=== PATIENT | female | born 1950 | race Caucasian/White ===

== ENCOUNTER 2016-08-23 22:43 | Inpatient (IN) | payer OTHER ==
[~2016-08-23] VITALS: Ht 167.6 cm; Wt 107.0 kg
--- NOTE | ~2016-08-23 | HC ---
[facility] [place] [address] CONSULTATION Name: CYNTHIA AGUILAR Room #: 536-P [facility] IN M.R.#: [id number] Admission: 08/24/16 Attend Phys: Venus Bradford Discharge: Date of : 54 Report #: [id number] THIS REPORT FOR: //name// CC: Raf Bradford DATE OF SERVICE: 08/24/2016 DATE OF SERVICE: 08/24/2016 CHIEF COMPLAINT: Pathologic fracture, left proximal femur. 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 She has recently completed a chemotherapy cycle ____ about one week ago. She fell yesterday, landing awkwardly and injuring the left hip. She was brought to the Emergency Department where x-rays confirmed a displaced, unstable subtrochanteric left femur fracture. There is not clear evidence of significant lytic lesion at this level, although I suspect there must be metastatic involvement in this region. The femoral head and acetabulum appeared to be well aligned and without significant degenerative change. At the time of this dictation, we do not yet have full x-rays of the left femur to assess for other areas of possible metastatic disease and bone weakness. At the time of my evaluation, she is alert and oriented and accompanied by her . She is quite anxious and quite uncomfortable. She has been on chronic narcotic medications for some time and now her pain at the left hip is rather severe. She seems to have good movement of both upper extremities and the right lower extremity and denies significant new discomfort in those areas, although she does have rather significant chronic pain. She is not complaining of any discomfort involving the neck, mid back or low back. The pelvis seems to be stable and well aligned. The right lower extremity reveals good movement at the hip, knee and ankle without significant joint discomfort. The left lower extremity appears to be slightly short and rotated and there is rather marked discomfort with any attempted movement of the left hip consistent with an unstable proximal femur fracture. Distal neurologic and vascular status appeared to be intact. X-rays of the left hip reveal a subtrochanteric fracture with displacement and mild comminution. The cortical bone seems to be otherwise fairly intact without evidence of significant bony erosion or metastatic disease. As noted above, new x-rays of the entire femur are pending at the time of this dictation. IMPRESSION: Pathologic fracture, left proximal femur. I have discussed with the patient and her , the nature of this problem [place] [address] CONSULTATION Name: CYNTHIA AGUILAR Room #: 536-P [facility] IN M.R.#: [id number] Admission: 08/24/16 Attend Phys: Venus Bradford Discharge: Date of : 54 Report #: [id number] options. She is markedly uncomfortable and hopes for anything we might do to help with her severe pain. I think intramedullary ivonne fixation of this subtrochanteric femur fracture is probably the best approach to try to manage her symptoms. She is certainly at risk for other areas of fracture. I am in the process of getting full femur x-rays to decide whether a short ivonne or a long ivonne may be most appropriate in this patient. Pending those films and medical clearance, and OR availability, we may be able to proceed with her surgical repair today, which is certainly the hope of the patient and her . They understand the potential risks and benefits as well and appreciate that she certainly at significant risk for catastrophic complications given her widely metastatic cancer at this point. <ELECTRONICALLY SIGNED> By: Raf Aj MD 08/26/16 1054 0916 1222 Raf Aj MD /nt
--- NOTE | ~2016-08-23 | HC ---
[facility] [place] [address] CONSULTATION Name: CYNTHIA AGUILAR Room #: 536-P [facility] IN M.R.#: [id number] Admission: 08/24/16 Attend Phys: Venus Bradford Discharge: Date of : 54 Report #: [id number] THIS REPORT FOR: //name// CC: Raf Bradford HISTORY OF PRESENT ILLNESS: This is a 65-year-old female having an acute delirium. She has had some medications that have deviated from her routine medication list and the family is unhappy about this, so we worked through the list about what the patient needs to be on from home and there are some concerning things such as that she does takes alprazolam 1 mg doses 4-5 times a day, but absolutely 4 times a day, so we abruptly would stop it. She will have withdrawal. Effexor is actually 300 mg total daily, so if we abruptly stop that she could have withdrawal and confusion. Nonetheless, even at her baseline, she could have confusion given everything she is going through. She is a complex patient and it is hard to manage many of these medications and some of the things on her list by the way, she is on oxycodone 20 mg twice daily. Her list includes Meloxicam, atorvastatin, losartan, hydrochlorothiazide, pantoprazole, Bystolic, melatonin 20 mg at bedtime, ____, Claritin, senna, B12. PAST PSYCHIATRIC HISTORY: She has been treated by ____, psychiatrist in [facility] for the last 7 years and had fairly good control with anxiety and depression largely and they feel that has been fairly stable. ALLERGIES: No known drug allergies. MEDICATIONS: Reviewed, noted on chart and also reconciled with family and nursing at length. PHYSICAL EXAMINATION: VITAL SIGNS: Reviewed, pulse 79, respirations 20, BP 150/72. LABORATORY DATA: White count 9.3, hemoglobin 9.0, neutrophils 93%. Sodium 131, BUN 20, calcium 6, phosphorus 2, ALT 12. Hemoglobin 9.7, creatinine 0.9, glucose 142. IMPRESSION: The patient has a nonsmall cell lung cancer with bone mets to the right hip. She has a pathological fracture on her left hip. FAMILY MEDICAL HISTORY: None. SOCIAL HISTORY: The patient has good support from her family. I spoke with numerous family members who are in the room trying to help her with the situation. Apparently also from a psychiatric standpoint, has a history of depression, [facility] [address] [place] [address] CONSULTATION Name: CYNTHIA AGUILAR Room #: 536-P [facility] IN [facility].#: [id number] Admission: 08/24/16 Attend Phys: Venus Bradford Discharge: Date of : 54 Report #: [id number] anxiety, PTSD; from a medical standpoint also has a history of numerous surgeries including carotid endarterectomies, meniscus repair, hysterectomy, total knee replacement, left side, GERD, colonoscopy, hypercholesterolemia. SOCIAL HISTORY: She has [id number]-cayub of smoking. ASSESSMENT: The patient is alert, but disoriented. She is hallucinating. She is talking about babies being born. She is not able to orientate correctly. She is restless. She is complaining of anxiety, but she did calm down after she was given some Xanax from staff and her arm tenderness improved and she seemed generally calmer by the time I had left. She is able find no cogent history. Family provided all the history and also printed out her medications. Her affect is restless and tense waxing and waning. Limited insight and judgment. She lacks insight and judgment. Actively hallucinating visual hallucinations. She has significant anxiety as well, panic like features. ASSETS AND LIABILITIES: Assets include family involvement and hospitalization. Liabilities include severity of illness. IMPRESSION: AXIS I: 1. Major depressive, recurrent, severe. 2. Post-traumatic stress disorder. 3. Agitation. 4. Delirium. AXIS II: Deferred. AXIS III: As above. AXIS IV: Severe. AXIS V: Global assessment function currently 30%. PLAN: The patient is a complex patient. It is tough to make decisions regarding her medications, but I think we do more harm right now stopping the Xanax abruptly than keeping it going and that it does have a risk of causing more confusion and making the delirium last longer, but I think the risk from withdrawal would show a greater problem sensing with the opiates, so it is good that we get her back on her routine opiate amounts as that could be part of why she is so significantly confused, especially with a visual hallucination component, so we have corrected the medications and continue to do so. We will get her back on the melatonin. I think it is fairly benign even at 20 mg, that should actually help her sleep and hopefully improve her mental site status as well. The Risperdal, she will be shifted back to her usual dose of 0.5 mg at bedtime. She will use 0.25 also as needed for agitation and will use Xanax for [facility] [address] [place] [address] CONSULTATION Name: CYNTHIA AGUILAR Room #: 536-P [facility] IN M.R.#: [id number] Admission: 08/24/16 Attend Phys: Venus Bradford Discharge: Date of : 54 Report #: [id number] anxiety. Other things I would consider using such you have done with Haldol and other types of anxiolytics, but I think given how confused she is now, simplification is the idea, so we need to avoid adding different benzodiazepines, avoid different antipsychotics, stick with these at least for a day or two and then hopefully by Saturday, we can decide whether she needs a different type of approach and hopefully also we will be seeing a gradual improvement of her mental status. We will follow the patient. Thank you for your consultation of this complex patient. If you have any questions, give me a call. By: [phone] Joao Bo MD /nt
--- NOTE | ~2016-08-23 | O ---
[facility] [place] [address] OPERATIVE REPORT Name: CYNTHIA AGUILAR Room #: 536-P [facility] IN M.R.#: [id number] Admission: 08/24/16 Attend Phys: Venus Bradford Discharge: Date of : 54 Report #: [id number] THIS REPORT FOR: //name// CC: Raf Bradford DATE OF SERVICE: 08/24/2016 PREOPERATIVE DIAGNOSIS: Left proximal femur subtrochanteric fracture with pathologic fracture due to metastatic cancer. POSTOPERATIVE DIAGNOSIS: Left proximal femur subtrochanteric fracture with pathologic fracture due to metastatic cancer. PROCEDURE: Reduction and fixation of left pathologic proximal femur fracture using long TFN nail fixation. SURGEON: Raf Aj M.D. INDICATIONS: This 65-year-old female with metastatic small cell carcinoma presents after a fall with a left proximal femur fracture in the subtrochanteric region. We discussed treatment options and elected to go ahead with surgical fixation using a long TFN nail device. DESCRIPTION OF PROCEDURE: The patient was taken to the operating room where she is placed under general anesthesia. Prophylactic intravenous antibiotics were administered. She was positioned on the fracture table with gentle longitudinal traction to allow reduction and visualization of the left proximal femur fracture. C-arm was utilized. The lateral aspect of the left hip and thigh were meticulously prepped and draped. A skin incision was made several centimeters above the greater trochanter, access to the trochanter was somewhat difficult as she is large with a rather abundant adipose tissues. A guidewire was placed through the tip of the trochanter extending across the fracture and down the intramedullary canal. The canal was then reamed with reamers gradually advancing to a 13-mm reamer diameter. A 10-mm diameter Synthes TFN nail was selected, a 34-cm length nail was selected, which brought the tip down to the metaphyseal region several centimeters above her total knee on that side. The TFN nail was advanced appropriately and then rotated under C-arm visualization such that the lateral guidewire extended nicely into the mid portion of the femoral head and neck. A 105-mm length helical blade nail was then inserted across the nail into the femoral neck and head region. It was advanced to a point about 10-12 mm below the subchondral bone at the femoral head, it seemed to have good purchase in this region. The proximal locking nut was tightened down. This resulted in satisfactory alignment and stability of the proximal fracture. Visualization with C-arm was then established distally. I elected to [address] [address] OPERATIVE REPORT Name: CYNTHIA AGUILAR Wendy Room #: 536-P [facility] IN M.R.#: [id number] Admission: 08/24/16 Attend Phys: Venus Bradford Discharge: Date of : 54 Report #: [id number] just one screw in the dynamic slot such that there would be room for fracture compression with weightbearing. A single transverse locking screw was placed, it seated nicely and appeared to be secure. The wounds were copiously irrigated. Good hemostasis was established. The wound was then closed with 0 Monocryl and skin roddy. A sterile dressing was applied. The patient was awakened and returned to the recovery room in satisfactory condition. <ELECTRONICALLY SIGNED> By: Raf Aj MD 08/26/16 1054 1128 1412 Raf Aj MD /nt
[2016-08-23 22:43] VITALS: BP 153/52
[~2016-08-23 22:43] MED LIST: ALPRAZOLAM; ALPRAZOLAM ER1 MG PO; ASPIR 8181 M1 PO; CELEBREX 200 M200 MG; COLACE100 MG PO; COUMADIN 2 MG TA2 M1; COUMADIN 5 MG TA5 M1; COZAAR100 MG PO; DICLOFENAC SOD50 M1 PO; DIOVAN; EFFEXOR; EFFEXOR XR150 MG PO; FIBER500 MG PO; FLEXERIL PO; HYDROCHLOROTHIA25 M2 PO; HYDROCODON-ACE1 EAC7 PO; HYDROCODONE-AP1 EAC6 PO; HYDROCODONE-APA1 TA1 PO; LIPITOR; LIPITOR20 MG PO; LYRICA 75 MG CA75 MG PO; MEDROLDOSEPACK PO; MOBIC15 MG PO; NAPROSYN500 MG PO; NEURONTIN 300300 M1; NEURONTIN600 MG PO; NORCO 10-325 T1 EACH PO; NORCO 5-325 TA1 EACH PO; OXYCODONE-ACET1 EAC2; PERCOCET 5-3251 EACH PO; PREDNISONE 20 M20 MG PO; PROTONIX PO; PROTONIX40 M2 PO; PROTONIX40 M4 PO; RISPERDAL4 MG PO; ROBITUSSIN DM118 ML PO; TOPAMAX50 MG PO; VITAMIN B-121000 MCG PO; VITAMIN D 5050000 I1; VITAMIN D1000 UNI1 PO; XARELTO10 MG PO
[2016-08-23] MEDS ORDERED: BYSTOLIC 5 MG5 M1 PO (23:10)
[2016-08-23] MEDS ORDERED: OXYCONTIN20 M1 PO (23:10)
[2016-08-23] MEDS ORDERED: MELATONIN10 M5 PO (23:12)
[2016-08-23] MEDS ORDERED: CURCUMIN1 GM (23:12)
[2016-08-23] MEDS ORDERED: CLARITIN10 MG PO (23:12)
[2016-08-23] MEDS ORDERED: SENNA8.6 MG PO (23:13)
[2016-08-23] MEDS ORDERED: SYMBICORT160 MCG/4. INH (23:14)
[2016-08-23] MEDS ORDERED: FOLIC ACID1 MG (23:15)
[2016-08-23] MEDS ORDERED: ONDANSETRON HCL4 M2 (23:16)
[2016-08-23] MEDS ORDERED: COMPAZINE10 MG (23:16)
[2016-08-23] MEDS ORDERED: DEXAMETHASONE 44 M1 (23:16)
[2016-08-23] MEDS ORDERED: BACTRIM 400-801 EACH (23:18)
[2016-08-23 23:24] LABS: HEMOGLOBIN 8.1 gm/dL (12.0-15.0); MCH 33.1 pg (26.0-34.0); MCHC 35.2 g/dL (28.0-37.0); PLATELET COUNT 245 thou/uL (150-400); RBC 2.44 mil/uL (4.20-5.00); RDW 14.2 % (10.5-14.5); WBC 3.5 thou/uL (4.0-11.0)
[2016-08-23 23:28] LABS: CALCIUM 6.9 mg/dL (8.5-10.1); CREATININE 0.9 mg/dL (0.6-1.0); POTASSIUM 4.2 mmol/L (3.5-5.1)
[2016-08-23 23:32] LABS: TOTAL BILIRUBIN 0.3 mg/dL (<0.1-1.0)
[2016-08-23 23:37] LABS: MANUAL DIFF YES
[2016-08-23 23:59] LABS: ABSOLUTE NEUTROPHILS 3.4 thou/uL (1.4-8.2); TOTAL CELL COUNT 100
[2016-08-24] VITALS (11 sets, daily range): BP systolic 118–169; BP diastolic 65–80
[2016-08-24] MEDS ORDERED: MOBIC15 MG PO (02:29)
[2016-08-24] MEDS ORDERED: VENLAFAXINE HC150 MG PO (02:31)
[2016-08-24] MEDS ORDERED: COMPAZINE10 MG PO (02:35)
[2016-08-24 16:34] LABS: HEMATOCRIT 27.6 % (37.0-47.0); HEMOGLOBIN 9.7 gm/dL (12.0-15.0)
[2016-08-24 16:42] LABS: CALCIUM 6.9 mg/dL (8.5-10.1); CREATININE 0.9 mg/dL (0.6-1.0); POTASSIUM 4.2 mmol/L (3.5-5.1)
[2016-08-25 05:37] LABS: HEMATOCRIT 25.9 % (37.0-47.0); MCH 32.7 pg (26.0-34.0); MCHC 34.6 g/dL (28.0-37.0); MCV 94.4 fL (80.0-100.0); PLATELET COUNT 216 thou/uL (150-400); RBC 2.74 mil/uL (4.20-5.00); RDW 14.5 % (10.5-14.5); WBC 3.4 thou/uL (4.0-11.0)
[2016-08-25 05:38] LABS: MANUAL DIFF YES
[2016-08-25 05:49] LABS: ALBUMIN 2.6 g/dL (3.4-5.0); CREATININE 0.8 mg/dL (0.6-1.0); MAGNESIUM 2.3 mg/dL (1.8-2.4); POTASSIUM 4.1 mmol/L (3.5-5.1); TOTAL BILIRUBIN 0.3 mg/dL (<0.1-1.0); TOTAL PROTEIN 6.2 g/dL (6.4-8.2)
[2016-08-25 08:07] VITALS: BP 150/72
[2016-08-25 10:53] LABS: ABSOLUTE NEUTROPHILS 3.2 thou/uL (1.4-8.2); NUCLEATED RBCS 1 /100WBC; TOTAL CELL COUNT 100
[2016-08-25 10:54] LABS: ANISOCYTOSIS SLIGHT
[2016-08-25 16:01] VITALS: BP 148/57
[2016-08-25 19:15] VITALS: BP 152/81
[2016-08-26 05:45] VITALS: BP 121/59
[2016-08-26 06:03] LABS: HEMATOCRIT 24.1 % (37.0-47.0); HEMOGLOBIN 8.4 gm/dL (12.0-15.0); MCH 32.6 pg (26.0-34.0); MCV 93.2 fL (80.0-100.0); RBC 2.58 mil/uL (4.20-5.00); RDW 14.5 % (10.5-14.5); WBC 3.1 thou/uL (4.0-11.0)
[2016-08-26 06:11] LABS: CALCIUM 6.9 mg/dL (8.5-10.1); CREATININE 0.8 mg/dL (0.6-1.0); POTASSIUM 3.4 mmol/L (3.5-5.1)
[2016-08-26 16:14] VITALS: BP 135/54
[2016-08-26 20:00] VITALS: BP 119/64
[2016-08-27 08:01] VITALS: BP 132/58
[2016-08-27 11:12] LABS: HEMATOCRIT 21.7 % (37.0-47.0); HEMOGLOBIN 7.8 gm/dL (12.0-15.0); MCH 33.2 pg (26.0-34.0); MCHC 36.1 g/dL (28.0-37.0); RBC 2.36 mil/uL (4.20-5.00); RDW 14.4 % (10.5-14.5)
[2016-08-27 11:18] LABS: CALCIUM 6.5 mg/dL (8.5-10.1); CREATININE 0.7 mg/dL (0.6-1.0); MANUAL DIFF YES; POTASSIUM 3.4 mmol/L (3.5-5.1); WBC 1.8 thou/uL (4.0-11.0)
[2016-08-27 12:41] LABS: ABSOLUTE NEUTROPHILS 1.3 thou/uL (1.4-8.2); ANISOCYTOSIS 1+; ATYPICAL LYMPHS 1 %; MICROCYTES 2+; TOTAL CELL COUNT 100
[2016-08-27 12:42] LABS: PLATELET COUNT 71 thou/uL (150-400); PLATELET ESTIMATE DECREASED
[2016-08-27 17:38] VITALS: BP 92/43
[2016-08-27 19:49] VITALS: BP 135/55
[2016-08-28 03:26] VITALS: BP 128/63
[2016-08-28 04:40] LABS: CALCIUM 7.2 mg/dL (8.5-10.1); CREATININE 0.7 mg/dL (0.6-1.0); POTASSIUM 3.6 mmol/L (3.5-5.1)
[2016-08-28 04:48] LABS: HEMOGLOBIN 7.8 gm/dL (12.0-15.0); MCH 32.7 pg (26.0-34.0); RBC 2.39 mil/uL (4.20-5.00)
[2016-08-28 04:50] LABS: HEMATOCRIT 22.3 % (37.0-47.0); MCHC 35.1 g/dL (28.0-37.0); MCV 93.2 fL (80.0-100.0); PLATELET COUNT 53 thou/uL (150-400); RDW 14.2 % (10.5-14.5)
[2016-08-28 04:57] LABS: MANUAL DIFF YES
[2016-08-28 04:58] LABS: WBC 1.9 thou/uL (4.0-11.0)
[2016-08-28 07:15] VITALS: BP 152/61
[2016-08-28 08:22] LABS: ABSOLUTE NEUTROPHILS 1.1 thou/uL (1.4-8.2); ANISOCYTOSIS SLIGHT; TOTAL CELL COUNT 100
[2016-08-28 15:00] VITALS: BP 134/61
[2016-08-29 04:30] VITALS: BP 114/56
[2016-08-29 07:45] VITALS: BP 109/52
[2016-08-29 07:58] LABS: MCV 92.9 fL (80.0-100.0)
[2016-08-29 08:00] LABS: MCH 33.1 pg (26.0-34.0); MCHC 35.6 g/dL (28.0-37.0); RDW 14.6 % (10.5-14.5)
[2016-08-29 08:07] LABS: ALBUMIN 2.2 g/dL (3.4-5.0); CALCIUM 6.9 mg/dL (8.5-10.1); CREATININE 0.7 mg/dL (0.6-1.0); POTASSIUM 3.5 mmol/L (3.5-5.1); TOTAL BILIRUBIN 0.4 mg/dL (<0.1-1.0); TOTAL PROTEIN 5.6 g/dL (6.4-8.2)
[2016-08-29 08:09] LABS: MANUAL DIFF YES
[2016-08-29 08:12] LABS: HEMATOCRIT 19.5 % (37.0-47.0); HEMOGLOBIN 6.9 gm/dL (12.0-15.0); WBC 1.6 thou/uL (4.0-11.0)
[2016-08-29 09:12] LABS: ABSOLUTE NEUTROPHILS 0.8 thou/uL (1.4-8.2); ATYPICAL LYMPHS 2 %; TOTAL CELL COUNT 50
[2016-08-29 09:13] LABS: ANISOCYTOSIS 1+
[2016-08-29 15:04] VITALS: BP 109/61; BP 96/54
[2016-08-29 21:04] VITALS: BP 121/60
[2016-08-30 07:30] VITALS: BP 86/50
[2016-08-30 08:00] VITALS: BP 124/55
[2016-08-30 08:03] LABS: HEMATOCRIT 20.9 % (37.0-47.0); HEMOGLOBIN 7.4 gm/dL (12.0-15.0); MCH 32.6 pg (26.0-34.0); MCHC 35.4 g/dL (28.0-37.0); MCV 92.1 fL (80.0-100.0); RBC 2.27 mil/uL (4.20-5.00); RDW 14.4 % (10.5-14.5)
[2016-08-30 08:10] LABS: MANUAL DIFF YES
[2016-08-30 08:11] LABS: PLATELET COUNT 24 thou/uL (150-400); WBC 1.3 thou/uL (4.0-11.0)
[2016-08-30 09:13] LABS: ABSOLUTE NEUTROPHILS 0.5 thou/uL (1.4-8.2); LARGE PLATELETS FEW; PLATELET ESTIMATE MARKEDLY DECREASED; TOTAL CELL COUNT 100
[2016-08-30 19:15] VITALS: BP 104/67
[2016-08-31 04:55] VITALS: BP 112/68
[2016-08-31 07:38] LABS: HEMATOCRIT 21.4 % (37.0-47.0); HEMOGLOBIN 7.5 gm/dL (12.0-15.0); MCH 32.4 pg (26.0-34.0); RDW 14.7 % (10.5-14.5)
[2016-08-31 07:40] LABS: MCV 92.6 fL (80.0-100.0); RBC 2.31 mil/uL (4.20-5.00)
[2016-08-31 07:44] LABS: MANUAL DIFF YES
[2016-08-31 07:46] LABS: PLATELET COUNT 28 thou/uL (150-400); WBC 1.2 thou/uL (4.0-11.0)
[2016-08-31 08:55] LABS: ABSOLUTE NEUTROPHILS 0.4 thou/uL (1.4-8.2); ATYPICAL LYMPHS 6 %; METAMYELOCYTES 2 %; NUCLEATED RBCS 1 /100WBC; TOTAL CELL COUNT 50
[2016-08-31 08:57] LABS: ANISOCYTOSIS 1+
[2016-08-31 09:17] VITALS: BP 100/57
[2016-08-31 16:00] VITALS: BP 95/53
[2016-08-31 19:39] VITALS: BP 114/57
[2016-09-01 03:44] VITALS: BP 82/50
[2016-09-01 04:28] LABS: HEMOGLOBIN 7.5 gm/dL (12.0-15.0)
[2016-09-01 04:31] LABS: HEMATOCRIT 21.5 % (37.0-47.0); MCH 32.4 pg (26.0-34.0); MCHC 35.1 g/dL (28.0-37.0); MCV 92.2 fL (80.0-100.0); RBC 2.33 mil/uL (4.20-5.00); RDW 14.8 % (10.5-14.5)
[2016-09-01 05:05] LABS: WBC 1.4 thou/uL (4.0-11.0)
[2016-09-01 09:09] VITALS: BP 90/68
[2016-09-01 11:43] VITALS: BP 106/42
[2016-09-01] MEDS ORDERED: OXYCODONE HCL 55 MG PO (18:07)
[2016-09-01] MEDS ORDERED: XANAX1 MG PO (18:07)
[2016-09-01] MEDS ORDERED: OXYCONTIN20 M1 PO (18:07)
== END 2016-09-01 19:24 | DRG 480 ==
LOC: ER 22:43 → EROBS 08-24 00:22 → 5S 08-24 00:22 → 4N 08-30 16:55
PROVIDERS: Family Medicine; Hospitalist; Internal Medicine; Internal Medicine Hematology & Oncology; Nurse Practitioner; Physician Assistant
PROC: 0QS704Z Reposition Left Upper Femur with Internal Fixation Device, Open Approach (ICD-10-PCS; principal; 2016-08-24)
DX: M84.452 Pathological fracture, left femur (principal); E43 Unspecified severe protein-calorie malnutrition; E87.1 Hypo-osmolality and hyponatremia; C34.90 Malignant neoplasm of unspecified part of unspecified bronchus or lung; C79.51 Secondary malignant neoplasm of bone; D61.818 Other pancytopenia; Z96.652 Presence of left artificial knee joint; F32.9 Major depressive disorder, single episode, unspecified; F43.10 Post-traumatic stress disorder, unspecified; F41.9 Anxiety disorder, unspecified; K21.9 Gastro-esophageal reflux disease without esophagitis; E78.5 Hyperlipidemia, unspecified; Z96.651 Presence of right artificial knee joint; G89.29 Other chronic pain; R45.1 Restlessness and agitation; I25.10 Atherosclerotic heart disease of native coronary artery without angina pectoris; I10 Essential (primary) hypertension; E87.6 Hypokalemia; K08.409 Partial loss of teeth, unspecified cause, unspecified class; R09.02 Hypoxemia; Z90.710 Acquired absence of both cervix and uterus; Z87.891 Personal history of nicotine dependence; Z79.899 Other long term (current) drug therapy; Z68.38 Body mass index [BMI] 38.0-38.9, adult
CPT/HCPCS: 10086; 10790; 50010; 50101; 50133; 50202; 50386; 50635; 51412; 51538; 51817; 52145; 52304; 56525; 57092; 62110; 62900; 70005

== ENCOUNTER 2016-11-19 13:18 | Observation (INO) | payer OTHER ==
[~2016-11-19] VITALS: Ht 167.6 cm; Wt 104.3 kg
[~2016-11-19 13:18] MED LIST changes: +BACTRIM 400-801 EACH; +BYSTOLIC 5 MG5 M1 PO; +CLARITIN10 MG PO; +COMPAZINE10 MG; +COMPAZINE10 MG PO; +CURCUMIN1 GM; +DEXAMETHASONE 44 M1; +FOLIC ACID1 MG; +MELATONIN10 M5 PO; +ONDANSETRON HCL4 M2; +OXYCODONE HCL 55 MG PO; +OXYCONTIN20 M1 PO; +SENNA8.6 MG PO; +SYMBICORT160 MCG/4. INH; +VENLAFAXINE HC150 MG PO; +XANAX1 MG PO
[2016-11-19 13:57] LABS: ABSOLUTE NEUTROPHILS 3.4 thou/uL (1.4-8.2); HEMATOCRIT 28.5 % (37.0-47.0); HEMOGLOBIN 9.7 gm/dL (12.0-15.0); LYMPHOCYTES 12.6 % (24.0-44.0); MCV 94.6 fL (80.0-100.0); RBC 3.01 mil/uL (4.20-5.00); WBC 4.3 thou/uL (4.0-11.0)
[2016-11-19 13:59] LABS: BASOPHILS 0.3 % (0.0-2.0); MCH 32.1 pg (26.0-34.0); MONOCYTES 8.4 % (1.0-8.0); POLYS 78.7 % (36.0-66.0)
[2016-11-19 14:00] LABS: MANUAL DIFF NO
[2016-11-19 14:14] LABS: ALBUMIN 2.6 g/dL (3.4-5.0); CREATININE 1.3 mg/dL (0.6-1.0); DIRECT BILIRUBIN 0.2 mg/dL (<0.1-0.3); TOTAL BILIRUBIN 0.4 mg/dL (<0.1-1.0)
[2016-11-19 14:19] LABS: POTASSIUM 2.6 mmol/L (3.5-5.1)
[2016-11-19 14:40] LABS: PLATELET COUNT 22 thou/uL (150-400)
[2016-11-19] MEDS ORDERED: ARIPIPRAZOLE5 MG PO (17:22)
[2016-11-19 18:03] VITALS: BP 168/87
[2016-11-19 20:00] VITALS: BP 158/89
[2016-11-19 20:23] LABS: CALCIUM 5.7 mg/dL (8.5-10.1); MAGNESIUM 0.6 mg/dL (1.8-2.4); POTASSIUM 2.5 mmol/L (3.5-5.1)
[2016-11-20] VITALS: BP 146/77
[2016-11-20 06:39] LABS: HEMATOCRIT 24.8 % (37.0-47.0); HEMOGLOBIN 8.5 gm/dL (12.0-15.0); WBC 3.2 thou/uL (4.0-11.0)
[2016-11-20 06:41] LABS: MCH 32.7 pg (26.0-34.0); MCHC 34.1 g/dL (28.0-37.0); MCV 95.8 fL (80.0-100.0); RBC 2.59 mil/uL (4.20-5.00); RDW 22.3 % (10.5-14.5)
[2016-11-20 07:04] LABS: ALBUMIN 2.4 g/dL (3.4-5.0); TOTAL BILIRUBIN 0.3 mg/dL (<0.1-1.0); TOTAL PROTEIN 6.5 g/dL (6.4-8.2)
[2016-11-20 07:15] LABS: CALCIUM 5.6 mg/dL (8.5-10.1); POTASSIUM 2.4 mmol/L (3.5-5.1)
[2016-11-20 08:30] VITALS: BP 98/53
[2016-11-20] MEDS ORDERED: POTASSIUM20 PO (10:37)
[2016-11-20 10:46] VITALS: BP 98/53
[2016-11-20] MEDS ORDERED: MAGOX 400400 MG PO (11:18)
== END 2016-11-20 12:14 | disposition home or self-care (01) ==
LOC: ER 13:18 → EROBS 15:20 → 3N 15:20
PROVIDERS: Nurse Practitioner
DX: R11.2 Nausea with vomiting, unspecified (principal); C34.90 Malignant neoplasm of unspecified part of unspecified bronchus or lung; D61.818 Other pancytopenia; E87.6 Hypokalemia; C79.89 Secondary malignant neoplasm of other specified sites; E78.00 Pure hypercholesterolemia, unspecified; F32.9 Major depressive disorder, single episode, unspecified; F41.9 Anxiety disorder, unspecified; K21.9 Gastro-esophageal reflux disease without esophagitis; F43.10 Post-traumatic stress disorder, unspecified; I10 Essential (primary) hypertension; E83.42 Hypomagnesemia; Z88.8 Allergy status to other drugs, medicaments and biological substances; Z96.653 Presence of artificial knee joint, bilateral; Z87.891 Personal history of nicotine dependence; Z90.710 Acquired absence of both cervix and uterus; Z79.899 Other long term (current) drug therapy
CPT/HCPCS: 10096; 23020; 23021; 23024; 23025; 23031

== ENCOUNTER 2016-11-30 14:29 | Inpatient (IN) | payer OTHER ==
[~2016-11-30] VITALS: Ht 167.6 cm; Wt 97.5 kg
--- NOTE | ~2016-11-30 | HC ---
[facility] [place] [address] CONSULTATION Name: CYNTHIA AGUILAR Room #: 303-P [facility] IN ..#: [id number] Admission: 11/30/16 Attend Phys: Em[facility]ckerman MD[facility] Discharge: Date of : 54 Report #: [id number] THIS REPORT FOR: //name// CC: Emre Ackerman HISTORY OF PRESENT ILLNESS: The patient is a pleasant 65-year-old female I have been asked to see for further evaluation of her nausea and vomiting. She had a CT scan today, which revealed partial small-bowel obstruction, detailed below. She began having nausea and vomiting approximately 48 hours prior to presentation. She has had some epigastric and periumbilical abdominal pain as well. She was diagnosed with lung cancer in July 2016 and sought a second opinion at [facility]. There was suspicion per her history of a lesion in the right hip region and she received radiation for this. She has also had chemo. She has had a colonoscopy done in the last 4-5 months, which was normal. She has had intra-abdominal surgery to include only hysterectomy. PAST MEDICAL HISTORY: Other medical history notable for bilateral knee replacements, knee arthroscopy, hysterectomy, endarterectomy, PTSD, depression, anxiety, hypertension, COPD and reflux. FAMILY HISTORY: Negative for inflammatory bowel disease or colon cancer. SOCIAL HISTORY: Denies alcohol use. Smoked until about a year ago. MEDICATIONS: On presentation, magnesium oxide, hydrochlorothiazide, budesonide, Protonix, albuterol, Effexor, Zofran, Xanax, Abilify, hydrocodone, Cozaar, potassium. REVIEW OF SYSTEMS: Negative for weight loss, weakness or fatigue. She denies head, eyes, ears, nose or throat complaints. She denies chest pain, chest palpitation, chest pressure, cough, shortness of breath, wheezing, genitourinary, musculoskeletal or neuropsychiatric complaints otherwise. PHYSICAL EXAMINATION: GENERAL: The patient is afebrile. VITAL SIGNS: Stable. HEENT: Nonicteric. NECK: No JVD, thyromegaly or bruits. CARDIOVASCULAR: Regular. LUNGS: Clear anteriorly. ABDOMEN: Soft, nondistended, mildly tender diffusely. No rebound or guarding. No stigmata of chronic liver disease. No abnormal masses or bruits. EXTREMITIES: Not examined. NEUROLOGIC: Not performed. RECTAL: Deferred. [facility] [address] [place] [address] CONSULTATION Name: CYNTHIA AGUILAR Room #: 303-P [facility] IN M.R.#: [id number] Admission: 11/30/16 Attend Phys: Emre Ackerman MD, FAAF Discharge: Date of : 54 Report #: [id number] LABORATORY DATA: Pertinent labs include white count 10.8, hemoglobin 11.6, platelet count 91. Serum chemistry notable for potassium 2.6, calcium 5.9, magnesium 0.9, chloride 94, creatinine 1.1. IMAGING DATA: CT of the abdomen reveals evidence of a partial small-bowel obstruction with transition zone in the right lower quadrant. No obvious mass or peritoneal metastasis. ASSESSMENT AND PLAN: In summary, the patient most likely has a partial small-bowel obstruction from adhesions. Of course, we would want to exclude metastatic disease to the small bowel, which would be unlikely with lung cancer. I would proceed with conservative management with nasogastric suction and bowel rest, avoiding excessive narcotics and serial exam as well as x-ray. Thanks for allowing me to participate in the care of this nice woman. <ELECTRONICALLY SIGNED> By: Justin Landin MD 12/02/16 1241 1313 1952 Justin Landin MD /nt
--- NOTE | ~2016-11-30 | EKG ---
[place] [address] [facility] [place] [address] ELECTROCARDIOGRAM REPORT Name: CYNTHIA AGUILAR Room #: 303-P ADM IN M.R.#: [id number] Admission: 11/30/16 Attend Phys: Emre Ackerman MD, FAAF Discharge: Date of : 54 Report #: [id number] THIS REPORT FOR: //name// [facility] ED Test Date: 2016-11-30 Test Time: 15:03:49 Pat Name: CYNTHIA AGUILAR Department: Room: 303 Gender: F [employer]ist: [id number] : 1950 Requested By: Turner Eng Order Number: [id number] MD: Adan Mortensen Measurements Intervals Flanagan Rate: 103 P: 57 WI: 129 QRS: 63 QRSD: 97 T: 214 QT: 363 QTc: 475 Interpretive Statements Sinus tachycardia Nonspecific ST and T wave abnormality Artifact in lead(s) I,II,aVR,aVL,aVF Compared to ECG 07/12/2014 08:58:05 ST and T wave abnormality is more pronounced Electronically Signed On 12-03-2016 8:30:33 CDT by Adan Mortensen [email or web address] <ELECTRONICALLY SIGNED> By: Adan Mortensen MD, [facility] 12/03/16 0830 1503 1503 Adan Mortensen MD, [facility] /EPI
--- NOTE | ~2016-11-30 | HC ---
[facility] [place] [address] CONSULTATION Name: CYNTHIA AGUILAR Room #: 303-P [facility] IN ..#: [id number] Admission: 11/30/16 Attend Phys: Emre Ackerman MD, FAAF Discharge: Date of : 54 Report #: [id number] THIS REPORT FOR: //name// CC: Emre Ackerman DATE OF SERVICE: 12/01/2016 I have been asked to evaluate this 65-year-old lady who has presented to the Emergency Department with chief complaint of nausea and vomiting. The patient is undergoing chemotherapy for lung CA at a [facility] and had been doing well. Her last cycle of chemotherapy was approximately 2 weeks ago. She awakened at 0600 today with significant midepigastric pain associated with wretching and vomiting. She reports that she had been passing stool until approximately 24-48 hours ago. She denies passing flatus today at the time of examination. PAST MEDICAL HISTORY: Consistent with left knee meniscus repair, hysterectomy, right carotid endarterectomy, left total knee replacement, hypertension, depression, anxiety, PTSD, GERD, oral surgery, full dental extraction, hypercholesterolemia and left lung small cell CA undergoing current chemotherapy, right knee replacement. MEDICATIONS: Multiple including , KCl, venlafaxine, loratadine, Symbicort, folic acid, Zofran, Cozaar, Lipitor, Risperdal, hydrochlorothiazide and Protonix. ALLERGIES: To LORAZEPAM. SOCIAL HISTORY: A long time cigarette smoker of approximately 40 years' duration, having quit recently after the diagnosis of lung CA. She denies alcohol use and does not utilize illegal drugs. FAMILY HISTORY: Not obtainable. REVIEW OF SYSTEMS: A 10-point review of systems essentially noncontributory except for the change in gastrointestinal function within the last 24 hours associated with nausea, vomiting and pain. PHYSICAL EXAMINATION: GENERAL: Reveals a lady who is afebrile, resting comfortably in bed, IV is infusing. HEENT: Glasses for acuity, pupils are equal. NECK: Supple, no adenopathy. LUNGS: Clear bilaterally. CARDIOVASCULAR: Regular rate and rhythm. ABDOMEN: Nondistended, mild tenderness in the midepigastrium and the right [facility] [address] [place] [address] CONSULTATION Name: CYNTHIA AGUILAR Room #: 303-P ADM IN [facility]#: [id number] Admission: 11/30/16 Attend Phys: Emre Ackerman MD, FAAF Discharge: Date of : 54 Report #: [id number] lower quadrant. No guarding or rebound is present. RECTAL: Not performed. NEUROLOGIC: Oriented times 3, bilateral motor symmetry. REVIEW OF PERTINENT LABORATORY: Demonstrates white blood cell count within normal limits. Other labs within normal limits except for some hypokalemia. CT scan is consistent with possible distal partial small-bowel obstruction. I would recommend NG tube placement, IV fluids. We will repeat labs and x-rays in the a.m. The patient currently does not have an acute abdomen and does not require operative intervention at this time. Thank you for allowing us to participate in her care. <ELECTRONICALLY SIGNED> By: Aurelio Shah MD, FACS 12/04/16 1711 1319 1353 Aurelio Shah MD, FACS /nt
--- NOTE | ~2016-11-30 | HC ---
[facility] [place] [address] CONSULTATION Name: CYNTHIA AGUILAR Room #: 303-P [facility] IN ..#: [id number] Admission: 11/30/16 Attend Phys: Em[facility] Ackerman MD, [facility] Discharge: 12/04/16 Date of : 54 Report #: [id number] THIS REPORT FOR: //name// CC: Emre Ackerman DATE OF SERVICE: 11/30/2016 DATE OF SERVICE: 11/30/2016 HISTORY OF PRESENT ILLNESS: I have been asked to evaluate this 65-year-old lady who has presented to the hospital with nausea and vomiting. The patient has been undergoing lung cancer chemotherapy at the [facility] in [place] with a every 2-week cycle for chemotherapy. The patient for the last 2 days began to have some nausea associated with vomiting. She has had a previous many years ago. She states that her usual bowel pattern is constipation alternating with loose stools. The patient, at the time of presentation, had not had chemotherapy for approximately 4 weeks. She began to have difficulty with a cramping abdominal pain, nausea and vomiting 2-1/2 days ago after eating roast beef. She denied melena or hematochezia. PAST MEDICAL HISTORY: Consistent with many years ago, bilateral knee replacements, knee arthroscopy, carotid endarterectomy, PTSD, depression, anxiety, generalized anxiety disorder, hypertension, COPD, GERD. SOCIAL HISTORY: Lives with her . Denies alcohol use. Did smoke cigarettes up to approximately one year ago, long lengthy history of cigarette smoking. FAMILY HISTORY: Brother with brain cancer, kidney cancer, breast cancer in sister, cardiovascular disease for both parents. ALLERGIES: LORAZEPAM. MEDICATIONS: Multiple, hydrochlorothiazide 25 mg, Protonix 40 mg a day, Effexor XR 150 mg a day, Zofran p.r.n., Xanax 1 mg q.3 hours, Abilify 2.5 mg and hydrocodone tablets q. 4 hours as needed. REVIEW OF SYSTEMS: Ten point review of systems noncontributory except for recent change in gastrointestinal function associated with cramping abdominal pain, nausea and vomiting. Generally, she has been in a fair state of health, has not had significant weight loss with the chemotherapy for lung cancer. PHYSICAL EXAMINATION: GENERAL: Reveals an overweight lady resting comfortably in bed. HEENT: Glasses for acuity. Pupils to be equal. NECK: Supple, no adenopathy, carotid endarterectomy scar. [facility] [address] [place] [address] CONSULTATION Name: CYNTHIA AGUILAR Room #: 303-P [facility] IN M.R.#: [id number] Admission: 11/30/16 Attend Phys: Emre Ackerman MD, FAAF Discharge: 12/04/16 Date of : 54 Report #: [id number] LUNGS: Decreased breath sounds on the left. CARDIOVASCULAR: Regular rate and rhythm. ABDOMEN: Obese, mild tenderness in the midepigastrium, no distention, no guarding or rebound is noted. RECTAL: Not performed. NEUROLOGIC: She is oriented x 3, bilateral motor symmetry. LABORATORY DATA: Demonstrates white blood cell count within normal limits. Lactic acid level within normal. CT scan would suggest possible ileus or partial small bowel obstruction, no free air is noted. DIAGNOSTIC IMPRESSION: Partial recurrent small-bowel obstruction. I would recommend NG suction, IV fluids and repeat KUB and laboratory with examination in the a.m. The patient does not have an acute abdomen at this time and does not require emergent surgery. Thank you for allowing us to participate in her care. <ELECTRONICALLY SIGNED> By: Aurelio Shah MD, FACS 12/10/16 1305 1202 [id number] Aurelio Shah MD, FACS /nt
--- NOTE | ~2016-11-30 | H ---
[facility] [place] [address] HISTORY AND PHYSICAL Name: CYNTHIA AGUILAR Room #: 303-P [facility] IN M.R.#: [id number] Admission: 11/30/16 Attend Phys: Emre Ackerman MD, FAAF Discharge: Date of : 54 Report #: [id number] THIS REPORT FOR: //name// CC: Emre Ackerman DATE OF SERVICE: 11/30/2016 CHIEF COMPLAINT: Nausea, vomiting. HISTORY OF PRESENT ILLNESS: This pleasant woman has had 2 days of severe nausea and vomiting. She noted that it was after eating pot roast at a restaurant, perhaps this made her ill. Her last bowel movement was 2 days ago was normal. She has not had any diarrhea. She has not had any fevers, chills, night sweats. No other associated symptoms. She has had some abdominal pain with vomiting. There were no alleviating factors, no triggers. She did have an episode like this perhaps a month or two ago, but this was after chemotherapy. The patient was diagnosed with lung cancer in 07/2016. She does not know if this is small cell or nonsmall cell lung cancer. She said she was told that there was a spot on her hip and she was very emotional speaking of this. She did state that she had an MRI of the brain, perhaps 3 months ago with no sign of central nervous system lesions. She also said she had a CAT scan 2 weeks ago that showed no progression of her chemotherapy. She is supposed to get chemotherapy every 3 weeks. Her last chemo was 4 weeks ago, but because of pancytopenia, this was delayed. She is going to [facility]. Besides for the episode with the previous chemotherapy, she has not had any further event. This will continue on ____. <ELECTRONICALLY SIGNED> By: Toi Chapman MD 12/01/16 0845 0812 0839 Toi Chapman MD /nt
--- NOTE | ~2016-11-30 | H ---
[facility] [place] [address] HISTORY AND PHYSICAL Name: CYNTHIA AGUILAR Room #: 303-P [facility] IN .R.#: [id number] Admission: 11/30/16 Attend Phys: Emre Ackerman MD, FAAF Discharge: Date of : 54 Report #: [id number] THIS REPORT FOR: //name// CC: Emre Ackerman DATE OF SERVICE: 11/30/2016 CHIEF COMPLAINT: Nausea and vomiting. HISTORY OF PRESENT ILLNESS: This is a pleasant woman who has had 2 days of nausea and vomiting. This started after eating a pot roast perhaps 2-1/2 days ago at a restaurant. Her did not have any other similar food, did not have nausea and vomiting. She has had normal bowel movements. The patient is speculating perhaps this is the cause. The patient was apparently admitted a month or two ago with persistent nausea and vomiting, but this was around chemotherapy. She has not had chemotherapy for 4 weeks. She has not had any diarrhea. No recent travel. No well water. There has been no exposure to gastroenteritis or small children with stomach issues. The patient has had some abdominal cramping with nausea and vomiting and at times, this has been bilious, but no hematemesis. No significant diarrhea, melena or hematochezia. She has had some abdominal pain. She has never had a bowel obstruction. She does not have any headache. The patient has lung cancer. She was diagnosed in July 2016. She does not know whether this is small cell or nonsmall cell lung cancer. The records are unavailable to me at the present time. Unfortunately, the [place] electronic medical records are unavailable through a whole series of confusing and difficulties accessing the system. There are no other records and the patient is not certain whether this is small cell or nonsmall cell. The patient does state that within the last month, she did have a repeat CT scan that showed no progression of disease, although there was no significant improvement with chemotherapy. She has never had surgery for this. She also notes that approximately 2 months ago, she did have an MRI of the brain with no evidence of LEGAL SECRETARY mets. She does state that she has a spot on her hip and is not certain whether this represents metastatic cancer. The patient is being treated in [place] by [facility]. There have been no noted fevers or chills. No headache, visual changes, hearing changes, sore throat, epistaxis. No chest pain, chest pressure, cough, wheeze, shortness of breath. No diarrhea, melena, hematochezia, dysuria, urinary frequency, arthralgias, joint swelling, skin rash. No focal weakness or numbness. The patient notes she has chronic arthralgias in her hips and her knees. She has chronic low back pain. She has had nausea and vomiting, at times bilious, but no hematemesis. PAST MEDICAL HISTORY: 1. Hysterectomy. 2. Bilateral knee replacements. [address] [address] HISTORY AND PHYSICAL Name: CYNTHIA AGUILAR Room #: 303-P [facility] IN M.R.#: [id number] Admission: 11/30/16 Attend Phys: Emre Ackerman MD, FAAF Discharge: Date of : 54 Report #: [id number] 3. Knee arthroscopy. 4. Hysterectomy. 5. Carotid endarterectomy. 6. PTSD, depression and anxiety. 7. Hypertension. 8. COPD. 9. GERD. SOCIAL HISTORY: The patient lives with her . Denies any alcohol use. She quit smoking about a year ago after a long history of smoking. FAMILY HISTORY: Brain cancer in her brother, kidney cancer in another brother, breast cancer in a sister and also heart disease in both parents. ALLERGIES: LORAZEPAM, apparently causes some confusion and disorientation. MEDICATIONS: At home, magnesium oxide 400 mg b.i.d., hydrochlorothiazide 25 mg a day, B12 1000 mcg a day, budesonide 0.5 mg b.i.d., pantoprazole 40 mg a day, albuterol as needed, Effexor XR 150 mg a day, Zofran 8 mg q. 6 hours p.r.n., Xanax 1 mg q. 3 hours p.r.n., Abilify 2.5 mg a day, hydrocodone 1 tablet every 4 hours as needed, Cozaar 100 mg a day, potassium 20 mEq a day. REVIEW OF SYSTEMS: As above. PHYSICAL EXAMINATION: GENERAL: Pleasant woman in no immediate distress, but uncomfortable, at times having emesis during her interview. VITAL SIGNS: Blood pressure 156/72, heart rate 93, respiratory rate 18, temperature 98.3. HEENT: Conjuctivae pink. Nares clear. Pharynx clear. NECK: Supple. No lymphadenopathy. LUNGS: Clear. HEART: Regular rate and rhythm, S1, S2. ABDOMEN: Soft, nondistended. Bowel sounds are positive. EXTREMITIES: With 1+ edema. The patient has diffuse erythema with calor on her left pretibial area from just below the knee to proximal to her ankle. LABORATORY DATA: White blood cell count 9.3, hemoglobin 10.6, platelet count 96. Sodium 135, potassium 2.6, chloride 94, bicarbonate 29, BUN 15, creatinine 1.1, glucose 108. Magnesium is 0.3, calcium 6.1. Liver function tests normal. Amylase and lipase normal. IMPRESSION: 1. Nausea and vomiting of uncertain cause. The patient does not recall having a CT of the abdomen. 2. Dehydration. [facility] [address] [place] [address] HISTORY AND PHYSICAL Name: CYNTHIA AGUILAR Room #: 303-P [facility] IN ..#: [id number] Admission: 11/30/16 Attend Phys: Emre Ackerman MD, FAAF Discharge: Date of : 54 Report #: [id number] 3. Hypokalemia and hypomagnesemia. 4. Hypertension. 5. Significant depression and anxiety. 6. Cellulitis of the left pretibial area. 7. Lung cancer, uncertain type, uncertain stage. PLAN: IV fluids, replete electrolytes, recheck electrolytes in the afternoon. CT abdomen and pelvis with IV contrast, considering the persistent emesis. She will not be able to tolerate oral contrast, she has been throwing up despite Phenergan. She declined an oncology consultation here. Antihypertensives as needed. <ELECTRONICALLY SIGNED> By: Toi Champan MD 12/02/16 0916 0843 0946 Toi Chapman MD /nt
[2016-11-30 14:29] VITALS: BP 143/85
[~2016-11-30 14:29] MED LIST changes: +ARIPIPRAZOLE5 MG PO; +MAGOX 400400 MG PO; +POTASSIUM20 PO
[2016-11-30 15:40] LABS: HEMATOCRIT 33.6 % (37.0-47.0); HEMOGLOBIN 11.6 gm/dL (12.0-15.0); MCH 32.2 pg (26.0-34.0); MCHC 34.5 g/dL (28.0-37.0); MCV 93.2 fL (80.0-100.0); PLATELET COUNT 91 thou/uL (150-400); RBC 3.61 mil/uL (4.20-5.00); RDW 19.5 % (10.5-14.5); WBC 10.8 thou/uL (4.0-11.0)
[2016-11-30 15:42] LABS: MANUAL DIFF YES
[2016-11-30 16:13] LABS: ALBUMIN 2.6 g/dL (3.4-5.0); ALKALINE PHOSPHATASE 147 U/L (46-116); ANION GAP 15 mmol/L (7-16); BUN 15 mg/dL (7-18); CALCIUM 6.1 mg/dL (8.5-10.1); CHLORIDE 93 mmol/L (98-107); CO2 29 mmol/L (21-32); CREATININE 1.3 mg/dL (0.6-1.0); GLUCOSE 119 mg/dL (74-106); SGOT 34 U/L (15-37); SGPT 11 U/L (30-65); SODIUM 137 mmol/L (136-145); TOTAL BILIRUBIN 0.5 mg/dL (<0.1-1.0); TOTAL PROTEIN 7.1 g/dL (6.4-8.2); TROPONIN-I < 0.04 ng/mL (<0.04-0.07)
[2016-11-30 16:15] LABS: POTASSIUM 2.8 mmol/L (3.5-5.1)
[2016-11-30 16:16] LABS: ABSOLUTE NEUTROPHILS 8.6 thou/uL (1.4-8.2); ANISOCYTOSIS 1+; TOTAL CELL COUNT 100
[2016-11-30 18:24] VITALS: BP 158/97
[2016-11-30 19:02] VITALS: BP 158/97
[2016-11-30 19:45] VITALS: BP 168/73
[2016-11-30 23:25] VITALS: BP 156/72
[2016-12-01 03:40] VITALS: BP 182/86
[2016-12-01 06:10] LABS: HEMATOCRIT 30.9 % (37.0-47.0); HEMOGLOBIN 10.6 gm/dL (12.0-15.0); MCH 32.2 pg (26.0-34.0); MCHC 34.4 g/dL (28.0-37.0); MCV 93.5 fL (80.0-100.0); PLATELET COUNT 96 thou/uL (150-400); RDW 20.9 % (10.5-14.5)
[2016-12-01 06:16] LABS: MANUAL DIFF YES
[2016-12-01 06:21] LABS: CREATININE 1.1 mg/dL (0.6-1.0)
[2016-12-01 06:22] LABS: MAGNESIUM 0.9 mg/dL (1.8-2.4)
[2016-12-01 06:23] LABS: CALCIUM 5.9 mg/dL (8.5-10.1); POTASSIUM 2.6 mmol/L (3.5-5.1)
[2016-12-01 07:49] LABS: ABSOLUTE NEUTROPHILS 7.4 thou/uL (1.4-8.2); TOTAL CELL COUNT 100
[2016-12-01 07:50] LABS: ANISOCYTOSIS 2+; POLYCHROMASIA SLIGHT
[2016-12-01 08:15] VITALS: BP 161/90
[2016-12-01 16:10] VITALS: BP 156/74
[2016-12-01 19:42] LABS: POTASSIUM 3.1 mmol/L (3.5-5.1)
[2016-12-01 19:45] LABS: CALCIUM 5.8 mg/dL (8.5-10.1)
[2016-12-01 20:00] VITALS: BP 147/67
[2016-12-02 04:00] VITALS: BP 165/76
[2016-12-02 07:13] LABS: HEMATOCRIT 27.5 % (37.0-47.0); HEMOGLOBIN 9.4 gm/dL (12.0-15.0); MCHC 34.3 g/dL (28.0-37.0); MCV 96.4 fL (80.0-100.0); PLATELET COUNT 97 thou/uL (150-400); RBC 2.85 mil/uL (4.20-5.00); RDW 20.8 % (10.5-14.5); WBC 9.2 thou/uL (4.0-11.0)
[2016-12-02 07:14] LABS: MANUAL DIFF YES
[2016-12-02 07:29] LABS: CREATININE 0.8 mg/dL (0.6-1.0); MAGNESIUM 1.6 mg/dL (1.8-2.4); POTASSIUM 3.3 mmol/L (3.5-5.1); TOTAL BILIRUBIN 0.4 mg/dL (<0.1-1.0); TOTAL PROTEIN 5.6 g/dL (6.4-8.2)
[2016-12-02 07:31] LABS: CALCIUM 5.3 mg/dL (8.5-10.1)
[2016-12-02 07:39] LABS: TOTAL CELL COUNT 100
[2016-12-02 07:40] LABS: PLATELET ESTIMATE NORMAL
[2016-12-02 08:12] VITALS: BP 100/56
[2016-12-02 16:20] VITALS: BP 119/60
[2016-12-02 18:12] LABS: URINE BILIRUBIN NEGATIVE (Negative); URINE BLOOD NEGATIVE (Negative); URINE COLOR YELLOW; URINE GLUCOSE-RANDOM* NEGATIVE (Negative); URINE KETONES TRACE (Negative); URINE LEUKOCYTES-REFLEX TRACE (Negative); URINE PROTEIN (DIPSTICK) TRACE (Negative); URINE SPECIFIC GRAVITY 1.015 (1.003-1.035); URINE UROBILINOGEN 0.2 E.U./dl (0.2-1.0)
[2016-12-02 18:18] LABS: URINE CREATININE-RANDOM* 74.3 mg/dL
[2016-12-02 20:00] VITALS: BP 147/72
[2016-12-03 04:00] VITALS: BP 155/66
[2016-12-03 04:48] LABS: HEMATOCRIT 25.2 % (37.0-47.0); HEMOGLOBIN 8.7 gm/dL (12.0-15.0); MCH 32.6 pg (26.0-34.0); MCHC 34.7 g/dL (28.0-37.0); MCV 93.9 fL (80.0-100.0); PLATELET COUNT 102 thou/uL (150-400); RBC 2.68 mil/uL (4.20-5.00); RDW 20.9 % (10.5-14.5); WBC 8.6 thou/uL (4.0-11.0)
[2016-12-03 04:53] LABS: MANUAL DIFF YES
[2016-12-03 05:41] LABS: CREATININE 0.7 mg/dL (0.6-1.0)
[2016-12-03 05:45] LABS: CALCIUM 5.4 mg/dL (8.5-10.1)
[2016-12-03 07:21] LABS: ABSOLUTE NEUTROPHILS 6.6 thou/uL (1.4-8.2); ANISOCYTOSIS 2+; METAMYELOCYTES 1 %; TOTAL CELL COUNT 100
[2016-12-03 08:00] VITALS: BP 136/64
[2016-12-03 16:00] VITALS: BP 130/89
[2016-12-03 19:55] VITALS: BP 104/63
[2016-12-04 03:30] VITALS: BP 116/63
[2016-12-04 06:23] LABS: HEMATOCRIT 27.6 % (37.0-47.0); HEMOGLOBIN 9.4 gm/dL (12.0-15.0); MCHC 34.2 g/dL (28.0-37.0); MCV 96.3 fL (80.0-100.0); PLATELET COUNT 119 thou/uL (150-400); RBC 2.86 mil/uL (4.20-5.00); RDW 21.2 % (10.5-14.5); WBC 7.8 thou/uL (4.0-11.0)
[2016-12-04 06:28] LABS: CREATININE 0.7 mg/dL (0.6-1.0); POTASSIUM 3.9 mmol/L (3.5-5.1)
[2016-12-04 06:46] LABS: MANUAL DIFF YES
[2016-12-04 08:00] VITALS: BP 167/88
[2016-12-04 08:09] LABS: ABSOLUTE NEUTROPHILS 6.2 thou/uL (1.4-8.2); ANISOCYTOSIS 2+; METAMYELOCYTES 1 %; TOTAL CELL COUNT 100
[2016-12-04 16:05] VITALS: BP 160/77
[2016-12-04 17:19] VITALS: BP 160/77
== END 2016-12-04 17:48 | disposition home or self-care (01) | DRG 388 ==
LOC: ER 14:29 → 3N 16:45 → EROBS 16:45 → 3N 19:00
PROVIDERS: Family Medicine; Hospitalist; Physician Assistant; Surgery
DX: K56.60 Unspecified intestinal obstruction (principal); E43 Unspecified severe protein-calorie malnutrition; L03.116 Cellulitis of left lower limb; N17.9 Acute kidney failure, unspecified; E86.0 Dehydration; I10 Essential (primary) hypertension; F32.9 Major depressive disorder, single episode, unspecified; E83.51 Hypocalcemia; E87.6 Hypokalemia; J44.9 Chronic obstructive pulmonary disease, unspecified; E83.42 Hypomagnesemia; F41.9 Anxiety disorder, unspecified; F43.10 Post-traumatic stress disorder, unspecified; K21.9 Gastro-esophageal reflux disease without esophagitis; E78.00 Pure hypercholesterolemia, unspecified; Z96.653 Presence of artificial knee joint, bilateral; Z85.118 Personal history of other malignant neoplasm of bronchus and lung; Z87.891 Personal history of nicotine dependence; Z90.710 Acquired absence of both cervix and uterus; Z92.21 Personal history of antineoplastic chemotherapy; Z88.8 Allergy status to other drugs, medicaments and biological substances; Z80.3 Family history of malignant neoplasm of breast; Z80.51 Family history of malignant neoplasm of kidney; Z80.8 Family history of malignant neoplasm of other organs or systems; Z82.49 Family history of ischemic heart disease and other diseases of the circulatory system
CPT/HCPCS: 10096

== ENCOUNTER 2016-12-09 10:48 | Inpatient (IN) | payer OTHER ==
[~2016-12-09] VITALS: Ht 167.6 cm; Wt 99.3 kg
--- NOTE | ~2016-12-09 | HC ---
[facility] [address] [address] CONSULTATION Name: CYNTHIA AGUILAR Room #: 448-P [facility] IN ..#: [id number] Admission: 12/09/16 Attend Phys: Derrek Villanueva DO Discharge: 12/11/16 Date of : 54 Report #: [id number] THIS REPORT FOR: //name// CC: Derrek Villanueva Emre Tyron DATE OF SERVICE: 12/10/2016 I have been asked to evaluate this 65-year-old lady who has lung cancer and receiving chemotherapy at [facility] in [place], [place], who has presented back to the Emergency Department with a chief complaint of abdominal pain associated with nausea and vomiting. The patient was just discharged from the hospital approximately 4 days ago after presenting with emesis and symptoms of small-bowel obstruction. She responded well to NG suction and IV fluids. She began passing flatus, had satisfactory stools and tolerated her diet. At home, she began to experience abdominal pain associated with nausea and some vomiting on Saturday a.m., approximately 8:00 a.m. when she awakened. 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 She has had radiation therapy also. Also hypertension, COPD, previous hysterectomy, bilateral knee replacements, carotid endarterectomy, chronic anxiety and depression with GERD. MEDICATIONS: Include hydrochlorothiazide, Protonix, Effexor, Xanax, Abilify, hydrocodone, Cozaar, budesonide. ALLERGIES: LORAZEPAM. SOCIAL HISTORY: Lives with her in [place]. Does not drink alcohol, quit smoking just 1 year ago, lengthy history of cigarette smoking. REVIEW OF SYSTEMS: Her 10-point review of systems essentially noncontributory except for recent change in gastrointestinal function with the abdominal pain. PHYSICAL EXAMINATION: GENERAL: Reveals patient who is comfortable, resting comfortably in bed, IV is infusing. She is not vomiting. HEENT: Glasses for acuity. Pupils are equal, round, react to light. NECK: Supple. LUNGS: Decreased breath sounds in the left. CARDIOVASCULAR: Regular rate and rhythm. ABDOMEN: Obese, nondistended, mild tenderness, no guarding or rebound. EXTREMITIES: 2-3+ pitting edema. NEUROLOGIC: She is oriented x 3 without localizing signs. [facility] [address] [place] [address] CONSULTATION Name: CYNTHIA AGUILAR Room #: 448-P [facility] IN M.R.#: [id number] Admission: 12/09/16 Attend Phys: Derrek Villanueva DO Discharge: 12/11/16 Date of : 54 Report #: [id number] Review of the laboratory demonstrates white blood cell count within normal limits, hemoglobin 9.4. There is a left shift to the white blood cell count. A CT scan is consistent with possible early small-bowel obstruction with some dilated small bowel loops. DIAGNOSTIC IMPRESSION: The patient does not have an acute abdomen at this time. She has a probable recurrent small-bowel obstruction, which is most likely secondary to adhesions from a long remote hysterectomy. I would recommend IV fluids. The patient is adamant that she will not accept an NG tube. N.p.o. status, repeat KUB and a CT scan with oral contrast in the a.m. Thank you for allowing us to participate in her care. We will follow her with you. <ELECTRONICALLY SIGNED> By: Aurelio Shah MD, FACS 12/12/16 1550 [id number] Aurelio Shah MD, FACS /nt
--- NOTE | ~2016-12-09 | H ---
[facility] [place] [address] HISTORY AND PHYSICAL Name: CYNTHIA AGUILAR Room #: 448-P [facility] IN M.R.#: [id number] Admission: 12/09/16 Attend Phys: Derrek Villanueva DO Discharge: 12/11/16 Date of : 54 Report #: [id number] THIS REPORT FOR: //name// CC: Derrek Shah MD DATE OF SERVICE: 12/09/2016 DATE OF SERVICE: 12/09/2016 PATIENT LOCATION: Room #448 HISTORY OF PRESENT ILLNESS: This 65-year-old white female is admitted to the Emergency Room with recurrent small-bowel obstruction. The patient was discharged from here 4 days ago after having presented with multiple episodes of emesis and findings of a small-bowel obstruction. She was treated with NG suction and did improve. She was passing flatus and did move her bowels on the day of discharge; however, since she returned home, she has not moved her bowels. She has passed flatus, however. But yesterday she became nauseated and anorectic, vomited once and vomited twice again this morning. PAST MEDICAL HISTORY: Significant for current treatment for small cell lung cancer, onset 07/2016 with metastasis to right pubic rami and right ribs for which she has had radiation therapy. She has had three chemotherapy treatments at the [facility] in [place], [place] and is due to go there in 3 days for further chemotherapy and another PET scan. Her other history includes hypertension, mild COPD, hysterectomy, bilateral knee replacements, carotid endarterectomy, chronic anxiety and depression, gastroesophageal reflux. MEDICATIONS ON ADMISSION: Hydrochlorothiazide 25 mg daily, pantoprazole 40 mg daily, Effexor XR 150 mg daily, Xanax 1 mg t.i.d. p.r.n. anxiety, Abilify 2.5 mg daily, hydrocodone 5/325 p.r.n. pain, Cozaar 100 mg daily, potassium 20 mEq daily, budesonide 0.5 mg b.i.d., vitamin B12 1000 mcg daily and Mag-Ox 400 mg b.i.d. ALLERGIES: LORAZEPAM makes her confused. SOCIAL HISTORY: Lives with her who watches her closely. She does not drink alcohol. She quit smoking a year ago after a long history of smoking. REVIEW OF SYSTEMS: She denies diarrhea, dysuria, rash, fever, falls, chest pain or dyspnea. PHYSICAL EXAMINATION: [facility] [address] [place] [address] HISTORY AND PHYSICAL Name: CYNTHIA AGUILAR Room #: 448-P [facility]#: [id number] Admission: 12/09/16 Attend Phys: Derrek Villanueva, DO Discharge: 12/11/16 Date of : 54 Report #: [id number] GENERAL: A pleasant, ill appearing, slightly overweight white female. VITAL SIGNS: BP 153/68, pulse 90, respiration 16, temperature afebrile. HEAD: No rash or trauma. EARS, NOSE AND THROAT: Has her own teeth in fair condition. Mucosa is moist today. EYES: No icterus. NECK: Supple. LUNGS: Clear. Cough is dry. HEART: Rate and rhythm regular without gallop or murmur. ABDOMEN: Soft and distended with bowel sounds that sound obstructed. She has generalized tenderness without real rebound. EXTREMITIES: Has 2-3+ pitting edema bilaterally. Homans' is negative. Mild venous stasis dermatitis is evident. NEUROLOGIC: She is alert and oriented. No lateralized deficits, but is very weak. Her gait is not tested. LABORATORY DATA: CAT scan of the abdomen and pelvis shows small-bowel obstruction with destruction of right anterior rib and right pubic ramus. Hemoglobin is 9.4, white count 10,000 with a left shift. Sodium 134, potassium 3.7, CO2 28, BUN 9, creatinine 1.0, glucose 90, bilirubin 0.4, alkaline phosphatase 144, albumin low at 2.3. Lipase normal. IMPRESSION: 1. Recurrent small-bowel obstruction, probably secondary to adhesions. 2. 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 3. Chronic anemia. 4. Bilateral pitting leg edema, probably secondary to hypoproteinemia from moderate protein calorie malnutrition, but should rule out DVT of the legs. 5. History of chronic obstructive pulmonary disease. 6. History of hypertension. 7. History of degenerative arthritis. 8. History of reactive depression with posttraumatic stress disorder. PLAN: The patient is adamant that she does not want an NG tube because of ____. She would probably get better quicker but she is willing to wait 1 day and try enemas. If she vomits or if her x-ray worsens, she will agree to the NG tube. I have spoken to Dr. Manzano of surgery. His group will follow the patient. We will give IV fluids. She has been given one dose of antibiotics in the Emergency Room. PROGNOSIS: Guarded. <ELECTRONICALLY SIGNED> By: Derrek Villanueva DO 12/13/16 1031 1510 1619 Derrek Villanueva DO /nt
[2016-12-09 11:07] VITALS: BP 177/100
[2016-12-09 12:03] LABS: HEMATOCRIT 30.9 % (37.0-47.0); HEMOGLOBIN 10.7 gm/dL (12.0-15.0); MCH 32.7 pg (26.0-34.0); MCHC 34.5 g/dL (28.0-37.0); MCV 94.6 fL (80.0-100.0); PLATELET COUNT 149 thou/uL (150-400); RBC 3.27 mil/uL (4.20-5.00); RDW 21.7 % (10.5-14.5); WBC 9.4 thou/uL (4.0-11.0)
[2016-12-09 12:04] LABS: MANUAL DIFF YES
[2016-12-09 12:12] LABS: CALCIUM 8.3 mg/dL (8.5-10.1); POTASSIUM 3.7 mmol/L (3.5-5.1)
[2016-12-09 12:18] LABS: ALBUMIN 2.3 g/dL (3.4-5.0); TOTAL BILIRUBIN 0.4 mg/dL (<0.1-1.0); TOTAL PROTEIN 6.4 g/dL (6.4-8.2)
[2016-12-09 12:32] LABS: ABSOLUTE NEUTROPHILS 6.5 thou/uL (1.4-8.2); METAMYELOCYTES 1 %; TOTAL CELL COUNT 100
[2016-12-09 12:33] LABS: ANISOCYTOSIS 2+; POLYCHROMASIA OCCASIONAL
[2016-12-09 14:27] VITALS: BP 149/71
[2016-12-09 16:00] VITALS: BP 112/69
[2016-12-09 19:05] VITALS: BP 116/61
[2016-12-10 05:57] VITALS: BP 125/55
[2016-12-10 07:10] LABS: MCH 32.4 pg (26.0-34.0); MCHC 33.4 g/dL (28.0-37.0); MCV 96.8 fL (80.0-100.0); PLATELET COUNT 131 thou/uL (150-400); RBC 2.68 mil/uL (4.20-5.00); RDW 22.5 % (10.5-14.5); WBC 6.1 thou/uL (4.0-11.0)
[2016-12-10 07:11] LABS: HEMOGLOBIN 8.7 gm/dL (12.0-15.0); MANUAL DIFF YES
[2016-12-10 07:37] LABS: CALCIUM 7.4 mg/dL (8.5-10.1); POTASSIUM 3.4 mmol/L (3.5-5.1)
[2016-12-10 08:07] LABS: ABSOLUTE NEUTROPHILS 3.3 thou/uL (1.4-8.2); METAMYELOCYTES 2 %; TOTAL CELL COUNT 100
[2016-12-10 08:09] LABS: ANISOCYTOSIS 2+; PLATELET ESTIMATE DECREASED
[2016-12-10 08:44] VITALS: BP 142/75
[2016-12-10 15:45] VITALS: BP 140/59
[2016-12-10 19:42] VITALS: BP 135/66
[2016-12-11 04:38] VITALS: BP 151/68
[2016-12-11 08:27] VITALS: BP 128/68
[2016-12-11 10:50] VITALS: BP 128/68
== END 2016-12-11 11:15 | disposition home or self-care (01) | DRG 388 ==
LOC: ER 10:48 → EROBS 14:10 → 4S 14:10
PROVIDERS: Emergency Medicine; Internal Medicine
DX: K56.60 Unspecified intestinal obstruction (principal); E43 Unspecified severe protein-calorie malnutrition; C34.90 Malignant neoplasm of unspecified part of unspecified bronchus or lung; C79.51 Secondary malignant neoplasm of bone; K57.92 Diverticulitis of intestine, part unspecified, without perforation or abscess without bleeding; I10 Essential (primary) hypertension; F32.9 Major depressive disorder, single episode, unspecified; F41.9 Anxiety disorder, unspecified; F43.10 Post-traumatic stress disorder, unspecified; K21.9 Gastro-esophageal reflux disease without esophagitis; E78.00 Pure hypercholesterolemia, unspecified; Z96.653 Presence of artificial knee joint, bilateral; J44.9 Chronic obstructive pulmonary disease, unspecified; D64.9 Anemia, unspecified; M19.90 Unspecified osteoarthritis, unspecified site; E86.9 Volume depletion, unspecified; Z90.710 Acquired absence of both cervix and uterus; Z88.8 Allergy status to other drugs, medicaments and biological substances; Z87.891 Personal history of nicotine dependence; Z68.35 Body mass index [BMI] 35.0-35.9, adult
CPT/HCPCS: 10195